=== PATIENT | female | born 1970 | race Caucasian/White ===

== ENCOUNTER → 2016-11-17 | Outpatient (CLI) | payer BC ==
[~2016-11-17] MED LIST: ACET-1256 PO; ALBU1AER9 INH; HYDR200T5 PO; IBUP-1050 PO
--- NOTE | 2016-11-17 14:25 | DIAGNOSTIC IMAGING REPORT ---
ULTRASOUND OF THE PELVIS CLINICAL HISTORY: Heavy menstrual bleeding. COMPARISON STUDY: Pelvic ultrasound dated 11/30/2015. TECHNIQUE: Real-time, grayscale, and color flow sonography of the pelvis is performed both transabdominally and endovaginally. Images are reviewed in the transverse and longitudinal planes. FINDINGS: Uterus: The uterus is normal in size and echotexture, measuring 7.1 x 3.7 x 4.6 cm. Nabothian cysts are incidentally noted in the cervix. Endometrium: The endometrium is normal in appearance, and the endometrial stripe is normal in thickness measuring up to 0.5 cm. An intrauterine device is in place. Ovaries: The ovaries are normal in size and morphology. The right ovary measures 3.3 x 1.8 x 2.1 cm and the left ovary measures 3.1 x 1.7 x 2.5 cm. Normal Doppler waveforms are shown within both ovaries. Pelvis: There is no free fluid in the cul-de-sac. No concerning adnexal lesion is seen. IMPRESSION: There is no acute sonographic abnormality identified in the pelvis noting an intrauterine device in place. Electronically signed by: Noé Good M.D. 11/17/2016 2:23 PM Dictated Date/Time: 11/17/2016 2:21 PM
== END | disposition home or self-care (01) ==
LOC: C.ULTRBC 13:40
PROVIDERS: ATTEND Family Medicine
DX: N92.0 Excessive and frequent menstruation with regular cycle (principal)